=== PATIENT | female | born 1930 | race African-American/Black ===

== ENCOUNTER 2017-05-13 19:49 | Emergency (ER) | payer MEDICARE ==
[~2017-05-13] VITALS: Ht 167.6 cm; Wt 68.0 kg
[2017-05-13] MEDS ORDERED: LANSOPRAZOLE30 MG PO (19:56)
[2017-05-13] MEDS ORDERED: TIMOLOL MALEATE10 M1 OPH (19:57)
[2017-05-13] MEDS ORDERED: AMLODIPINE BESYL5 MG PO (19:57)
[2017-05-13] MEDS ORDERED: SYNTHROID,LEVO75 MCG PO (19:57)
[2017-05-13] MEDS ORDERED: POTASSIUM CHLO10 ME5 PO (19:57)
[2017-05-13] MEDS ORDERED: ATORVASTATIN CA10 M1 PO (19:57)
[2017-05-13] MEDS ORDERED: HCTZ/TRIAMTEREN1 CA2 PO (19:57)
[2017-05-13] MEDS ORDERED: RESTASIS 30 ML30 ML OP (19:58)
== END 2017-05-13 21:51 | disposition home or self-care (01) ==
LOC: ED 19:49
DX: S01.511A Laceration without foreign body of lip, initial encounter (principal); S93.402A Sprain of unspecified ligament of left ankle, initial encounter; R51 Headache; R68.84 Jaw pain; Z88.2 Allergy status to sulfonamides; Z88.6 Allergy status to analgesic agent; Z79.899 Other long term (current) drug therapy; W01.198A Fall on same level from slipping, tripping and stumbling with subsequent striking against other object, initial encounter; Y93.89 Activity, other specified; Y92.828 Other wilderness area as the place of occurrence of the external cause; Y99.8 Other external cause status